=== PATIENT | female | born 1990 | race Caucasian/White ===

== ENCOUNTER 2020-05-15 11:03 | Outpatient (CLI) | payer SELFPAY ==
--- NOTE | 2020-05-15 11:10 | MM_ITS ---
WS: [id number] DIAGNOSTIC BILATERAL DIGITAL MAMMOGRAM WITH CAD Bilateral breast ultrasound, limited. HISTORY: Bilateral brownish nipple discharge. COMPARISON: None available. TECHNIQUE: Bilateral craniocaudad, mediolateral oblique, and mediolateral views are submitted. Comput er aided detection utilized. Breast composition: The breasts are heterogeneously dense, which may obscure small masses. Dense fibr oglandular tissue as expected. There is no discrete mass or architectural distortion. No duct is dila bonita at the nipple. No nipple retraction or adenopathy. Bilateral breast ultrasound. RIGHT breast: Minimally prominent ducts around the nipple. No intraluminal filling defect. Hypoechoic nodule at 1:00 adjacent to the areola measures 9 x 8 x 7 mm. Hypoechoic nodule without increased vas cularity. No through-transmission. There is an additional hypoechoic nodule which is slightly better circumscribed at 1:00 at the areola margin. These can be seen in the same image. This nodule measures 7 x 5 x 6 mm. LEFT breast: No significant duct dilatation. MM/[place] [id number] IMPRESSION: BI-RADS: 4-Suspicious Finding-Biopsy Should Be Considered FOLLOW UP: Biopsy Recommended 1. Ultrasound-guided biopsy recommended of the 2 hypoechoic nodules in the RIG HT breast at 1:00. These may be benign fibroadenomas but should undergo biopsy to confirm diagnosis. 2. No intraductal lesions or significant duct dilatation identified.
== END 2020-05-15 11:04 | disposition home or self-care (01) ==
LOC: RADSHAW 11:07
PROVIDERS: Visit Provider Nurse Practitioner Family
DX: N64.52 Nipple discharge (principal); N63.12 Unspecified lump in the right breast, upper inner quadrant
CPT/HCPCS: 76642; 77066

== ENCOUNTER 2020-05-21 11:56 | Outpatient (CLI) | payer SELFPAY ==
--- NOTE | 2020-05-21 12:04 | US_ITS ---
WS: [id number] ULTRASOUND-GUIDED RIGHT BREAST BIOPSY HISTORY: ABNORMAL MAMMOGRAM COMPARISON: 05/15/2020 ultrasound. Procedure, risks and complications are explained to the patient. Medications are reviewed. Consent is obtained. The mass in the RIGHT breast is localized with ultrasound. Solid mass is hypoechoic at 1:00 at the ar eola. Skin is cleansed with ChloraPrep and anesthetized with 1% buffered lidocaine. Small dermatome i s made. Under sterile conditions mass is biopsied with a 14-gauge Achieve needle. Multiple core biops ies are performed. Material placed in formalin and sent to pathology for review. No complications enc ountered. There is an additional smaller mass near the areola which elongated. Biopsy will not be performed of this mass. Believe this is normal breast tissue. Breast tissue marker (Bard ultrasound enhanced ribbon): Single. Patient left the radiology suite with no complications. Patient is instructed to return to [facility] or [facility] with any concerns. Note: There was an additional smaller mass near the areola for which biopsy was was recommended. This was not definitely identified on today's imaging study and appeared more like normal fibroglandular tissue. No biopsy was performed of this smaller lesion. US/[place] [id number] IMPRESSION: 1. Uncomplicated core needle biopsy RIGHT breast mass at 1:00. PATHOLOGY: Benign fragmented breast tissue with stromal sclerosis and fibroaden jennifer changes. No malignancy. RECOMMENDATION: Diagnostic RIGHT mammogram and possible ultrasound follow-up in 6 months.
== END 2020-05-21 11:57 | disposition home or self-care (01) ==
LOC: RAD 11:59
PROVIDERS: PCP Nurse Practitioner Family; Visit Provider Nurse Practitioner Family
DX: R92.8 Other abnormal and inconclusive findings on diagnostic imaging of breast (principal); N63.12 Unspecified lump in the right breast, upper inner quadrant
CPT/HCPCS: 19083; 88305

== ENCOUNTER → 2020-07-18 10:12 | Outpatient (BNVA) | payer SELFPAY | PROVIDERS: PCP Nurse Practitioner Family; Visit Provider Obstetrics & Gynecology | DX: Z01.812 Encounter for preprocedural laboratory examination (principal); N87.1 Moderate cervical dysplasia | CPT/HCPCS: 87635 ==

== ENCOUNTER 2020-07-24 10:08 | Day surgery (SDC) | payer SELFPAY ==
[2020-07-17 08:42] VITALS: BMI 27.3
--- NOTE | 2020-07-17 09:07 | ANES.PREANE2 ---
Pre-Anesthetic Assessment Pre-Anesthetic Assessment: Height/Weight: Height 1.73 m Weight 81.647 kg Preop Diagnosis: Cervical neoplasia Proposed Procedure: Operation Date: 07/24/20 09:35 Proposed Procedures p Colposcopy 28450 n87.1(Not Applicable) - Phoenix Whatley MD s Loop Electrosurgical Excision Procedure(Not Applicable) - Phoenix Whatley MD Familial anesthetic complications: None Social: Social History: Tobacco and No alcohol Exam: Pre-Anes Outpt Exam: alert, oriented x 3, clear to auscultation bilaterally and regular rate & rhythm Airway: Cervical ROM: WNL MP: 2 Dentition: Full Pulmonary: Pulmonary: Asthma (as a child) GI: GI: GERD Anesthetic Plan: ASA status: 1 Anesthesia: MAC Risk of > 500 ml blood loss (7ml/kg in children): No PFSH Anesthesia PFSH: Medical History Anxiety Cervical intraepithelial neoplasia II GERD (gastroesophageal reflux disease) Migraine Surgical History S/P left breast biopsy Age 13. Family History Grandmother Breast cancer Paternal Family history of thyroid problem Maternal Mother Family history of thyroid problem Social History Smoking and tobacco status: current every day smoker cigarettes Packs smoked per day: 1.5 [ Other cigarette details: Started age 14. Most 2-3 ppd. 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
[2020-07-24 10:37] LABS: OR HCG Qualitative Urine Negative (Negative)
[2020-07-24] MEDS: sodium chloride 0.9% 1,000 ML 30 ML IV (11:05)
[2020-07-24] MEDS: ketorolac 30 mg/mL INJ IVP (11:09)
[2020-07-24] MEDS: midazolam 1 mg/mL INJ 2 mL 2 MG IVP (11:10)
--- NOTE | 2020-07-24 11:15 | W.PM.OPSUD ---
Surgery/Procedure H&P Update DATE OF PROCEDURE: July 24, 2020 DATE H&P PERFORMED: 07/03/20 H&P UPDATE INFORMATION: I have reviewed H&P completed within last 30 days, I have examined patient prior to procedure, No changes to prior documentation and H&P is in [facility] E[facility] on date indicated PREOP DIAGNOSIS: Cervical intraepithelial neoplasia 2 PLANNED PROCEDURE: Operation Date: 07/24/20 12:00 Proposed Procedures p Colposcopy 48550 n87.1(Not Applicable) - Phoenix Whatley MD s Loop Electrosurgical Excision Procedure(Not Applicable) - Phoenix Whatley MD
--- NOTE | 2020-07-24 11:27 | P.ANESUD_ITS ---
Pre-Anesthetic Update Pre-Anesthetic Assessment: Date of Surgery/Procedure: 07/24/20 Preop Azra gnosis: Cervical intraepithelial neoplasia 2 Proposed Procedure: Operation Date: 07/24/20 12:00 Proposed Procedures p Colposcopy 71936 n87.1(Not Applicable) - Phoenix Whatley MD s Loop Electrosurgical Excision Procedure(Not Applicable) - Phoenix Whatley MD Any changes to Pre-Anesthetic Assessment?: No Last Intake: Intake Last Liquid Date 07/23/20 Last Liquid Time 21:00 Last Solid Date 07/23/20 Last Solid Time 23:47 Last Intake: 00:00 Labs Last 48hrs: Laboratory Results - last 48 hr 07/24/20 10:18 Urine HCG, Qual Negative Exam: Pre-Anes Outpt Exam: alert, oriented x 3, clear to auscultation bilaterally and regular rate & rhythm Cardiac Studies: No Data to Display
--- NOTE | 2020-07-24 11:57 | PM.OP ---
Operative Report Date of procedure: July 24, 2020 Pre-op Diagnosis: Cervical intraepithelial neoplasia 2 Post-op Diagnosis: Cervical intraepithelial neoplasia 2 Procedure Done: Colposcopy with loop electrosurgical excisional procedure of cervix, endocervical curettage, Paracervical block Specimens removed/disposition: LEEP specimen of cervix. Endocervical curettings. Surgeon: Phoenix Whatley Pig Lead Melter Helper: None Anesthesia: General Estimated blood loss (mL): 2 IV fluids (mL): 300 Complications: None Findings: Large area acetowhite area extending to the lateral edges of the cervix posteriorly. Large transformation zone present. 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 She had had a Pap smear and March 2020 which had shown high-grade ERYN. Dr. 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 As a result of these findings, LEEP was recommended. However, on my evaluation in the office, the lesion was thought to be too large to be adequately handled in the office and as a result she is presenting for treatment in the OR. Procedure: Patient was taken to the operating room where general anesthesia was obtained. She was placed in the dorsal supine position with legs in Luis Eduardo style stirrups. A nonconductive speculum was placed in the vagina and acetic acid applied to the cervix. Large area of acetowhite changes were noted over the entire transformation zone and extending to the edge of the cervix from approximately the 3 o'clock position posteriorly to approximately the 9 o'clock position. Lugol's solution was applied to the cervix confirming the areas of involvement with nonstaining areas corresponding to the acetowhite changes. A paracervical block was performed with a total of 10 mL of 2% lidocaine with epinephrine used. Using a 2 cm loop, the entire transformation zone and nonstaining portions of the cervix were excised. 2 passes were needed to completely excise the areas. The base of the excised area and edges of the cervix were cauterized with ball tip cautery. Monsel solution was applied. Patient tolerated procedure well. Sponge and needle counts were correct.
[2020-07-24 12:00] VITALS: BP 101/70; PULSE 97; RESP 18; TEMP 36.1; O2SAT 95
[2020-07-24 12:05] VITALS: BP 114/75; PULSE 90; RESP 18; O2SAT 96
[2020-07-24 12:09] VITALS: BP 99/65; PULSE 88; RESP 18; TEMP 36.3; O2SAT 100
[2020-07-24 12:15] VITALS: BP 111/68; PULSE 94; RESP 18; TEMP 36.6; O2SAT 96
--- NOTE | 2020-07-24 12:15 | SUR.PHASEI ---
1214 PT VERY AWAKE TALKING AND LAUGHING WITH STAFF AND FRIENDS AT BEDSIDE ,PT HAS BEEN ON RA SINCE ARRIVAL TO PACU, PT WANTS TO GO HOME ,DENIES PAIN WANTS DR BASS TO SIP ON PT TO OPS AWAKE ALERT TALKATIVE WITH STAFF YELENA REEVES.
[2020-07-24] MEDS: TRAMadol 50 mg Tablet PO (12:27)
[2020-07-24 12:30] VITALS: BP 119/80; PULSE 81; RESP 18; TEMP 36.6; O2SAT 95
--- NOTE | 2020-07-24 13:33 | ANE.PACU2 ---
Inpatient post-anesthesia follow up: Airway intact: Yes Vital signs: Temperature 98 F Pulse Rate 81 Respiratory Rate 18 Blood Pressure 119/80 Pulse Oximetry 95 Oxygen Delivery Me thod Room Air Oxygen Flow Rate Fraction of Inspir ed Oxygen Hydration adequate: Yes Nausea and vomiting: No Pain level: 1 Mental status: Baseline
== END 2020-07-24 12:55 | disposition home or self-care (01) ==
PROVIDERS: PCP Nurse Practitioner Family; Visit Provider Obstetrics & Gynecology
PROC: 0UJH8ZZ Inspection of Vagina and Cul-de-sac, Via Natural or Artificial Opening Endoscopic (ICD-10-PCS; CPT 57460; principal; 2020-07-24 12:00)
PROC: 0UBC7ZZ Excision of Cervix, Via Natural or Artificial Opening (ICD-10-PCS; CPT 57522; 2020-07-24 12:00)
DX: N87.1 Moderate cervical dysplasia (principal); J45.909 Unspecified asthma, uncomplicated; F41.9 Anxiety disorder, unspecified; K21.9 Gastro-esophageal reflux disease without esophagitis; F17.210 Nicotine dependence, cigarettes, uncomplicated
CPT/HCPCS: 57460; 12345; 81025; 84703; 88305; 88307; 96365; 96374; 96375; J0131; J1100; J1885; J2250; J2405; J2704; J3010; J7030

== ENCOUNTER 2020-09-03 08:13 | Outpatient (CLI) | payer SELFPAY ==
--- NOTE | 2020-09-03 08:18 | MM_ITS ---
WS: [id number] DIAGNOSTIC BILATERAL DIGITAL MAMMOGRAM WITH CAD Bilateral breast ultrasound, limited HISTORY: LT BREAST LUMP;6 MO F/U RT BREAST COMPARISON: 05/15/2020 TECHNIQUE: Bilateral craniocaudad, mediolateral oblique, and mediolateral views are submitted. Spot c ompression LEFT CC. Computer aided detection utilized. Breast composition: The breasts are heterogeneously dense, which may obscure small masses. Palpable a pamella in the LEFT breast near 10:00 in the middle depth. There is a very small amount of increased asym metry but no discrete mass or distortion. The nodule in the RIGHT breast at 1:00 anteriorly and was b iopsied and contains a biopsy clip. There is an additional slightly lobulated 8 mm mass near 3:00 of the RIGHT breast which is more conspicuous as compared to the prior study. Ultrasound will be perform ed. Bilateral breast ultrasound: LEFT breast: In the area the palpable abnormality, 10:00, 3 cm from the nipple is an ill-defined hypo echoic mass measuring 8 x 7 x 6 mm. As per the patient is is significantly decreased in size. RIGHT breast: Again noted is the mass at 1:00, 1 cm from the nipple which contains a biopsy clip. Mas s measures 1.2 x 1.1 x 0.7 cm. There are several additional hypoechoic masses in the RIGHT breast fro m 1-3 o'clock. Due to multiplicity these are probably all benign and may be fibroadenomas. The lobula bonita mass at 3:00 seen on the mammogram is well-circumscribed measuring 0.8 x 0.7 x 0.5 mm. Not change d in size by ultrasound as compared to the prior ultrasound from 05/15/2020. MM/[place] [id number] IMPRESSION: BI-RADS: 3-Probably Benign FOLLOW UP: 6 Month Follow-up 1. The asymmetry in the LEFT breast at 10:00 which is palpable has significant ly decreased in size since receiving antibiotics as per the patient. Probably a n inflammatory cyst or treated abscess. Recommend short-term ultrasound follow- up. 2. Several hypoechoic masses in the anterior RIGHT breast. The largest and mos t concerning has been previously biopsied and negative. As there are several ma sses present they are probably all benign. Suggest 6 month follow-up by ultraso und only. Clinically if these masses become larger in the interval ultrasound f ollow-up can also be performed before 6 month reevaluation.
== END 2020-09-03 08:14 | disposition home or self-care (01) ==
LOC: RAD 08:15
PROVIDERS: PCP Nurse Practitioner Family; Visit Provider Obstetrics & Gynecology
DX: N63.20 Unspecified lump in the left breast, unspecified quadrant (principal); N64.89 Other specified disorders of breast; N63.10 Unspecified lump in the right breast, unspecified quadrant
CPT/HCPCS: 76642; 77066

== ENCOUNTER → 2021-07-25 15:14 | Outpatient (BNVA) | payer SELFPAY | PROVIDERS: PCP Nurse Practitioner Family; Visit Provider Obstetrics & Gynecology | DX: N87.1 Moderate cervical dysplasia (principal); Z12.4 Encounter for screening for malignant neoplasm of cervix | CPT/HCPCS: 87624 ==

== ENCOUNTER → 2022-08-21 10:00 | Outpatient (BNVA) | payer SELFPAY | PROVIDERS: PCP Nurse Practitioner Family; Visit Provider Obstetrics & Gynecology | DX: Z01.419 Encounter for gynecological examination (general) (routine) without abnormal findings (principal) | CPT/HCPCS: 87624 ==

== ENCOUNTER 2023-08-08 09:01 | Emergency (ER) | payer SELFPAY ==
[2023-08-08 09:37] VITALS: BP 109/69; PULSE 77; RESP 15; TEMP 36.7; O2SAT 98
[2023-08-08 10:08] LABS: Add Urine Culture? Yes; Add Urine Microscopic? YES; Amorphous Sediment Urine 2+ /hpf; Bacteria Urine TRACE /hpf; Bilirubin Urine Neg (Negative); Blood Urine 3+ (Negative); Glucose Urine UA Norm (Normal); Ketones Urine Negative (Negative); Leukocyte Esterase Urine Negative (Negative); Nitrate Urine Negative (Negative); Protein Urine Neg (Negative); RBC Urine 40-50 /hpf (0-2); Squamous Epithelial Cell Urine 0-4 /hpf (0-5); Sulfosalicylic Acid Urine Negative (Negative); Urine Appearance Cloudy (CLEAR); Urine Color Yellow (Yellow); Urobilinogen Urine Norm (Negative); WBC Urine 0-4 /hpf (0-5); pH Urine 8 (5-7)
[2023-08-08 10:25] VITALS: RESP 17; O2SAT 98
[2023-08-08] MEDS: morphine 4 mg/mL SDV 1 mL IVP (10:25)
[2023-08-08] MEDS: dexamethasone 10 mg/mL INJ IVP (10:25)
[2023-08-08] MEDS: ketorolac 30 mg/mL INJ IVP (10:25)
--- NOTE | 2023-08-08 10:32 | CTR_ITS ---
PROCEDURE INFORMATION: Exam: CT Abdomen And Pelvis Without Contrast Exam date and time: 08/08/2023 11:02 AM Age: 33 years old Clinical indication: Abdominal pain; Flank; Right TECHNIQUE: Imaging protocol: Computed tomography of the abdomen and pelvis without contrast. Radiation optimization: All CT scans at this facility use at least one of these dose optimization techniques: automated exposure control; mA and/or kV adjustment per patient size (includes targeted exams where dose is matched to clinical indication); or iterative reconstruction. COMPARISON: CT kidney stone [id number] 04/24/2017 12:44 PM RADIATION DOSE METRICS: Total DLP (mGy-cm): 673.73 FINDINGS: Liver: No acute findings Gallbladder and bile ducts: No acute findings. Pancreas: No ductal dilation. Spleen: No splenomegaly. Adrenal glands: No mass. Kidneys and ureters: No stones or hydronephrosis. Stomach and bowel: No obstruction. Appendix: No evidence of appendicitis. Intraperitoneal space: No free air. No significant fluid collection. Vasculature: No abdominal aortic aneurysm. Lymph nodes: No enlarged lymph nodes. Urinary bladder: Incompletely distended. Reproductive: No acute findings. Bones/joints: No acute findings. Soft tissues: No acute findings. CT/CT abdomen pelvis wo con [id number] IMPRESSION: No stones or other acute findings.
[2023-08-08 10:47] LABS: Basophils # 0.1 10^3/uL (0.0-0.1); Basophils % 1.5 %; Eosinophils # 0.2 10^3/uL (0.0-0.8); Eosinophils % 2.3 %; Hematocrit 43.4 % (36-47); Lymphocytes # 2.7 10^3/uL (0.8-4.8); Mean Corpuscular HGB Conc 33.6 g/dL (30-55); Mean Corpuscular Hemoglobin 31.2 pg (27-33); Mean Corpuscular Volume 92.7 fl (85-98); Mean Platelet Volume 9.3 fL (7.4-10.4); Monocytes # 0.4 10^3/uL (0.2-0.9); Monocytes % 6.5 %; Neutrophils # 3.19 10^3/uL (1.8-7.7); Neutrophils % 48.5 %; Nucleated Red Blood Cells % 0 %; Platelet Count 277 10^3/cmm (157-399); Red Blood Count 4.68 10^6/uL (3.85-5.65); Red Cell Distribution Width 12.7 % (12.1-15.1); White Blood Count 6.58 10^3/uL (3.29-11.43)
--- NOTE | 2023-08-08 11:05 | W.ED.FEMALGU ---
HPI - Female Genitourinary General: Chief complaint: Urogenital-Female Stated complaint: back pain Time Seen by Provider: 08/08/23 09:42 Source: patient Mode of arrival: ambulatory History of Present Illness: 33-year-old female presents emergency room with complaints of back pain radiating into the groin and vaginal area. She denies any labial cyst swelling or irritation. She is currently having her menses. She was seen earlier this week she was concerned she had a bladder infection and a UTI but was told it was unremarkable was advised to get [id number] Azo's. She not had any fever sweats or chills. No history of renal stones. MD elicited complaint: dysuria Onset (ago): day(s) Severity: mild Quality of pain: cramping Vaginal bleeding: moderate (having menses) Urinary symptoms: Dysuria Exacerbating factors: none Relieving factors: none Associated symptoms: Deny abdominal pain, short of breath, fevers/chills, headache(s), nausea, rash, seizures, syncope, vaginal bleeding, vaginal discharge or weakness Patient : No Review of Systems Const: Denies: fever(s) or chills Card: Denies: chest pain or syncope Resp: Denies: dyspnea GI: Denies: abdominal pain or nausea : Denies: dysuria, urinary frequency, urinary urgency or vaginal discharge Musc: Denies: neck pain or back pain Skin/Breast: Denies: rash Neuro: Denies: headache(s) PFS ED PFSH: Medical History Cervical intraepithelial neoplasia II Migraine Anxiety GERD (gastroesophageal reflux disease) Surgical History H/O LEEP (07/24/20) Colposcopy with LEEP, endocervical curettage, paracervical block. Diagnosis: CHAR-2. Performed by Dr. Whatley at [facility] in [place], [place]. S/P left breast biopsy Age 13. Family History Grandmother Breast cancer Paternal--dx age 60's Family history of thyroid problem Maternal Mother Family history of thyroid problem Denies family history of Colon cancer Ovarian cancer Diabetes Hypertension Uterine cancer Stroke Social History Substance/Drug Use: current Other substance/drug use details: Rare use. Physical Exam Const: COMMON NORMALS: no acute distress GENERAL APPEARANCE: cooperative and comfortable ORIENTATION/CONSCIOUSNESS: Yes awake, Yes oriented to person, Yes oriented to place and Yes oriented to time HENMT: COMMON NORMALS: normocephalic, atraumatic and hearing grossly normal bilaterally HEAD & SCALP: normocephalic and atraumatic Resp: COMMON NORMALS: normal respiratory effort, No retractions, No use of accessory muscles and clear to auscultation bilaterally AUSCULTATION: clear to auscultation bilaterally Cardio: COMMON NORMALS: regular rate, regular rhythm and No murmurs present (Cardio) RATE: regular rate RHYTHM: regular rhythm GI: COMMON NORMALS: Soft to palpation and No hepatosplenomegaly present AUSCULTATION: Yes normoactive bowel sounds PALPATION: Yes Soft to palpation, No Tenderness to palpation present (GI), No Guarding due to palpation present (GI) and Yes No hepatosplenomegaly present : SPECULUM EXAM - VAGINA: No vaginal bleeding OB/EXTERNAL & SPECULUM: No vaginal bleeding Extremity: COMMON NORMALS: normal to inspection, capillary refill normal, no clubbing, cyanosis or edema, no calf tenderness and no pedal edema Neuro: SENSORIUM/ORIENTATION: Yes oriented to person, Yes oriented to place and Yes oriented to time Skin: COMMON NORMALS: no rashes or lesions noted GENERAL SKIN EXAM: no rashes or lesions noted Course Vital Signs: Vital signs: Vital Signs Temperature 98.0 F 08/08/23 09:37 Pulse Rate 77 08/08/23 09:37 Respiratory Rate 17 08/08/23 10:25 Blood Pressure 109/69 08/08/23 09:37 Pulse Oximetry 98 08/08/23 10:25 Oxygen Delivery Me thod Room Air 08/08/23 09:37 MDM - Female Medical Decision Making Labs and imaging reviewed hCG negative CT does not show anything acute. Initial urine showed 40-50 white blood cells repeat of the catheter it actually showed more however patient has no symptoms and CT does not show any source of blood. He is feeling somewhat better than she was when she first arrived. Discharge patient home started on diclofenac if not improving follow-up with primary care for possible referral to [facility] if appropriate Medical Records I reviewed the patient's medical records. Lab Data I reviewed the patient's lab results. 08/08/23 10:40 08/08/23 10:40 Radiology Impressions Abdomen/Pelvis CT 08/08/23 10:32 IMPRESSION: No stones or other acute findings. Laboratory Results WBC 6.58 10^3/uL (3.29-11.43) 08/08/23 10:40 RBC 4.68 10^6/uL (3.85-5.65) 08/08/23 10:40 Hgb 14.60 g/dL (11.27-16.99) 08/08/23 10:40 Hct 43.4 % (36-47) 08/08/23 10:40 MCV 92.7 fl (85-98) 08/08/23 10:40 MCH 31.2 pg (27-33) 08/08/23 10:40 MCHC 33.6 g/dL (30-55) 08/08/23 10:40 RDW 12.7 % (12.1-15.1) 08/08/23 10:40 Plt Count 277 10^3/cmm (157-399) 08/08/23 10:40 MPV 9.3 fL (7.4-10.4) 08/08/23 10:40 Neut % (Auto) 48.5 % 08/08/23 10:40 Lymph % (Auto) 41.0 % 08/08/23 10:40 [place] % (Auto) 6.5 % 08/08/23 10:40 Eos % (Auto) 2.3 % 08/08/23 10:40 Baso % (Auto) 1.5 % 08/08/23 10:40 Neut # (Auto) 3.19 10^3/uL (1.8-7.7) 08/08/23 10:40 Lymph # (Auto) 2.7 10^3/uL (0.8-4.8) 08/08/23 10:40 [place] # (Auto) 0.4 10^3/uL (0.2-0.9) 08/08/23 10:40 Eos # (Auto) 0.2 10^3/uL (0.0-0.8) 08/08/23 10:40 Baso # (Auto) 0.1 10^3/uL (0.0-0.1) 08/08/23 10:40 Nucleated RBC % (auto) 0 % 08/08/23 10:40 Nucleated RBCs # 0.0 /100WBC 08/08/23 10:40 Sodium 140 mmol/L (136-145) 08/08/23 10:40 Potassium 4.2 mmol/L (3.5-5.1) 08/08/23 10:40 Chloride 108 mmol/L (98-107) H 08/08/23 10:40 Carbon Dioxide 23 mmol/L (22-29) 08/08/23 10:40 Anion Gap 13.2 (5-19) 08/08/23 10:40 BUN 11 mg/dL (6-20) 08/08/23 10:40 Creatinine 0.6 mg/dL (0.5-0.9) 08/08/23 10:40 GFR Calculation 115.1 mL/min (90-130) 08/08/23 10:40 Glucose 113 mg/dL (65-115) 08/08/23 10:40 Calculated Osmolality 290 mOsm/kg (285-295) 08/08/23 10:40 Calcium 8.9 mg/dL (8.5-10.5) 08/08/23 10:40 Total Bilirubin 0.3 mg/dL (0.15-1.2) 08/08/23 10:40 AST 10 U/L (0-32) 08/08/23 10:40 ALT 12 U/L (0-33) 08/08/23 10:40 Alkaline Phosphatase 93 U/L (35-105) 08/08/23 10:40 Total Protein 6.8 g/dL (6.6-8.7) 08/08/23 10:40 Albumin 4.0 g/dL (3.5-5.2) 08/08/23 10:40 Globulin 2.8 g/dL (1.3-4.6) 08/08/23 10:40 Urine Color Yellow (Yellow) 08/08/23 10:50 Urine Appearance Hazy (CLEAR) A 08/08/23 10:50 Urine pH 7 (5-7) 08/08/23 10:50 Ur Specific [place] 1.010 (1.005-1.030) 08/08/23 10:50 Urine Protein Trace (Negative) 08/08/23 10:50 Urine Glucose (UA) Norm (Normal) 08/08/23 10:50 Urine Ketones Negative (Negative) 08/08/23 10:50 Urine Blood 3+ (Negative) H 08/08/23 10:50 Urine Nitrate Negative (Negative) 08/08/23 10:50 Urine Bilirubin Neg (Negative) 08/08/23 10:50 Prot Sulfosalicylic Acd Negative (Negative) 08/08/23 09:40 Urine Urobilinogen Norm mg/dL (Negative) 08/08/23 10:50 Ur Leukocyte Esterase Negative (Negative) 08/08/23 10:50 Urine RBC Too numerous to cnt /hpf (0-2) H 08/08/23 10:50 Urine WBC 0-4 /hpf (0-5) H 08/08/23 10:50 Ur Squamous Epith Cells 0-4 /hpf (0-5) H 08/08/23 10:50 Amorphous Sediment Not Reportable 08/08/23 10:50 Urine Bacteria Trace /hpf (NONE) 08/08/23 10:50 All radiology interpretation(s) finalized by discharge Discharge Plan Discharge Patient Disposition: Home Clinical Impression: Pelvic pain Condition: Stable Prescriptions: New diclofenac sodium 75 mg tablet,delayed release (DR/EC) 75 mg PO Q12H PRN (Reason: pain) Qty: 20 0RF No Action acetaminophen [Tylenol] 325 mg tablet 325 mg PO QID PRN (Reason: Pain) acyclovir 400 mg tablet 400 mg PO TID Qty: 15 2RF omeprazole 40 mg capsule,delayed release(DR/EC) 40 mg PO DAILY topiramate 50 mg tablet 50 mg PO BID Discharge Orders: Discharge ED (Routine); Ordered 08/08/23 Ordered By: Osvaldo Ortiz Referrals: Jaja Contreras FNP [Primary Care Provider] - Discharge Diet: Usual diet Discharge Activity: Increase activity as tolerated Patient Instructions: Opioid Safety, Pain Management Activity Restrictions/Additional Instructions: Thank you for choosing [facility] for your healthcare needs today. Please realize this is an emergency room and that we are providing you with a medical screening exam and this may not be complete and all inclusive of all the testing and or work up that you may need to determine your ailment or severity of your illness. It is very important that you follow up as instructed or that you return to the Emergency Department should you have concerns or if your condition changes or worsens in any way. If your symptoms do not improve follow-up with your primary care doctor for further evaluation and referral to gynecology if appropriate Coding Level of Care Code ED Reproduction Order Processor for Gina Avila
[2023-08-08 11:08] LABS: Alanine Aminotransferase 12 U/L (0-33); Alkaline Phosphatase 93 U/L (35-105); Anion Gap 13.2 (5-19); Aspartate Amino Transferase 10 U/L (0-32); Blood Urea Nitrogen 11 mg/dL (6-20); Calcium 8.9 mg/dL (8.5-10.5); Carbon Dioxide 23 mmol/L (22-29); Chloride 108 mmol/L (98-107); Globulin 2.8 g/dL (1.3-4.6); Glomerular Filtration Rate 115.1 mL/min (90-130); Glucose 113 mg/dL (65-115); Osmolality Calculated 290 mOsm/kg (285-295); Potassium 4.2 mmol/L (3.5-5.1); Sodium 140 mmol/L (136-145); Total Bilirubin 0.3 mg/dL (0.15-1.2); Total Protein 6.8 g/dL (6.6-8.7)
[2023-08-08 11:18] LABS: Add Urine Culture? No; Bacteria Urine TRACE /hpf; Bilirubin Urine Neg (Negative); Blood Urine 3+ (Negative); Glucose Urine UA Norm (Normal); Ketones Urine Negative (Negative); Leukocyte Esterase Urine Negative (Negative); Nitrate Urine Negative (Negative); Protein Urine Trace (Negative); RBC Urine TOO NUMEROUS TO CNT /hpf (0-2); Squamous Epithelial Cell Urine 0-4 /hpf (0-5); Urine Appearance Hazy (CLEAR); Urine Color Yellow (Yellow); Urobilinogen Urine Norm (Negative); WBC Urine 0-4 /hpf (0-5); pH Urine 7 (5-7)
== END 2023-08-08 12:03 | disposition home or self-care (01) ==
PROVIDERS: Emergency Provider Family Medicine; PCP Nurse Practitioner Family
DX: R10.2 Pelvic and perineal pain (principal)
CPT/HCPCS: 36415; 74176; 80053; 81001; 85025; 87086; 96374; 96375; 99285; J1100; J1885; J2270

== ENCOUNTER → 2023-09-07 11:27 | Outpatient (BNVA) | payer SELFPAY | PROVIDERS: PCP Nurse Practitioner Family; Visit Provider Nurse Practitioner Women's Health | DX: R30.0 Dysuria (principal); N64.52 Nipple discharge | CPT/HCPCS: 80053; 81000; 84146; 84439; 84443; 84481 ==

== ENCOUNTER → 2025-01-17 10:05 | Outpatient (BNVA) | payer MEDICAID, SELFPAY | PROVIDERS: PCP Nurse Practitioner Family; Visit Provider Nurse Practitioner Women's Health | DX: Z30.9 Encounter for contraceptive management, unspecified (principal) | CPT/HCPCS: 81025 ==

== ENCOUNTER → 2025-03-02 10:26 | Outpatient (BNVA) | payer BC, MEDICAID, SELFPAY | PROVIDERS: PCP Nurse Practitioner Family; Visit Provider Nurse Practitioner Women's Health | DX: R30.0 Dysuria (principal) | CPT/HCPCS: 84315 ==

== ENCOUNTER → 2025-04-14 09:42 | Outpatient (BNVA) | payer BC, SELFPAY | PROVIDERS: PCP Nurse Practitioner Family; Visit Provider Nurse Practitioner Women's Health | DX: R30.0 Dysuria (principal) | CPT/HCPCS: 81000 ==